=== PATIENT | male | born 1985 | race Caucasian/White ===

== ENCOUNTER 2018-03-07 07:48 | Observation (INO) ==
[2018-03-07 08:02] VITALS: BMI 41.3
[2018-03-07 08:30] LABS: BILIRUBIN,URINE NEGATIVE (NEGATIVE); BLOOD/HEMOGLOBIN,URINE 1+ (NEGATIVE); GLUCOSE, URINE NEGATIVE (NEGATIVE); KETONES,URINE NEGATIVE (NEGATIVE); LEUKOCYTE ESTERASE ,URINE NEGATIVE (NEGATIVE); NITRITES,URINE NEGATIVE (NEGATIVE); PROTEIN,URINE NEGATIVE (NEGATIVE); UROBILINOGEN,URINE NORMAL (NORMAL)
[2018-03-07 08:34] LABS: APPEARANCE,URINE CLEAR (CLEAR); COLOR,URINE YELLOW (YELLOW)
[2018-03-07 08:38] LABS: BACTERIA,URINE NEGATIVE /HPF (NEGATIVE); MUCUS,URINE FEW /HPF (NEGATIVE); RBC,URINE 0-2 /HPF (NONE SEEN); SQUAMOUS EPITHELIAL CELL,UR NEGATIVE /HPF (NEGATIVE)
[2018-03-07] MEDS ORDERED: ZOFRAN INJ 4 MG VIAL IVP ONE (08:42)
[2018-03-07] MEDS ORDERED: MORPHINE SULFATE INJ 4 MG IVP ONE ×2 (08:44→09:39)
[2018-03-07] MEDS ORDERED: ZOFRAN INJ 4 MG VIAL ONE (08:44)
[2018-03-07] MEDS ORDERED: MORPHINE SULFATE INJ 4 MG ONE ×2 (08:45→09:40)
--- NOTE | 2018-03-07 08:48 | DR.ABDMALE ---
HPI Time seen Time Seen by Provider: 03/07/18 08:15 PCP Primary Care Physician: GABRIELLA Complaint Chief Complaint:: PT C/O SUDDEN ONSET OF SEVERE SHARP STABBING PAIN INTO RIGHT LOWER QUADRANT. PAIN IS CONSTANT AND IS WORSENED BY SITTING DOWN. Mode of arrival Mode of Arrival: Ambulatory Timing Onset of Chief Complaint: 03/07/18 PMH PMH Past Medical History: Yes Past Medical History: GERD Past Surgical History: No Family History History of Family Medical Conditions: No Social History Does patient currently use any type of tobacco product: No Have you used tobacco products in the last 12 months: No Type of Tobacco Use: None Does any household member use tobacco: No Alcohol Use: None Do you use any recreational Drugs:: No Lives With: Alone Lives Where: Home infectious screening In the last 2 months have you had wt loss of >10#?: NO Have you had fever, night sweats or hemotysis?: No Have you traveled outside the country in the last 6 months?: No Isolation: Standard PE Vital Signs Vital Signs: Temp Pulse Resp BP Pulse Ox 03/07/18 07:58 98.1 F 95 H 22 181/101 98 ROR Labs Reviewed Result Diagrams: 03/07/18 09:03 03/07/18 09:03 Laboratory: WBC 13.3 X10^3/uL (3.6-10.0) H 03/07/18 09:03 RBC 5.37 X10^6/uL (4.7-6.0) 03/07/18 09:03 Hgb 15.5 g/dL (13.5-18.0) 03/07/18 09:03 Hct 45.9 % (42.0-54.0) 03/07/18 09:03 MCV 85.4 fL (80.0-100.0) 03/07/18 09:03 MCH 28.8 pg (27.0-34.0) 03/07/18 09:03 MCHC 33.8 g/dL (33.0-35.0) 03/07/18 09:03 RDW 13.3 % (11.6-16.5) 03/07/18 09:03 Plt Count 192 X10^3/uL (150.0-450.0) 03/07/18 09:03 MPV 10.3 fL (7.4-11.0) 03/07/18 09:03 Neut % (Auto) 80.6 % (42.0-75.0) H 03/07/18 09:03 Lymph % (Auto) 12.3 % (21.0-51.0) L 03/07/18 09:03 [place] % (Auto) 5.8 % (0.0-13.0) 03/07/18 09:03 Eos % (Auto) 0.9 % (0.9-2.9) 03/07/18 09:03 Baso % (Auto) 0.4 % (0.2-1.0) 03/07/18 09:03 Neut # (Auto) 10.7 x10^3/uL (2.2-4.8) H 03/07/18 09:03 Lymph # (Auto) 1.6 X10^3/uL (1.3-2.9) 03/07/18 09:03 [place] # (Auto) 0.8 x10^3/uL (0.3-0.8) 03/07/18 09:03 Eos # (Auto) 0.1 x10^3/uL (0.0-0.2) 03/07/18 09:03 Baso # (Auto) 0.1 X10^3/uL (0.0-0.1) 03/07/18 09:03 Absolute Nucleated RBC 0.0 /100WBC 03/07/18 09:03 Sodium 138 mmol/L (136-145) 03/07/18 09:03 Corrected Sodium TNP 03/07/18 09:03 Potassium 3.7 mmol/L (3.5-5.1) 03/07/18 09:03 Chloride 101 mmol/L (98-107) 03/07/18 09:03 Carbon Dioxide 26.4 mmol/L (21-32) 03/07/18 09:03 BUN 12 mg/dL (7-18) 03/07/18 09:03 Creatinine 1.13 mg/dL (0.70-1.30) 03/07/18 09:03 Est GFR (MDRD) Af Amer > 60 (>60) 03/07/18 09:03 Est GFR (MDRD) Non-Af > 60 (>60) 03/07/18 09:03 Glucose 108 mg/dL (65-99) H 03/07/18 09:03 Calcium 9.0 mg/dL (8.5-10.1) 03/07/18 09:03 Corrected Calcium TNP 03/07/18 09:03 Total Bilirubin 0.30 mg/dL (0.2-1.0) 03/07/18 09:03 AST 20 Units/L (15-37) 03/07/18 09:03 ALT 48 Units/L (12-78) 03/07/18 09:03 Alkaline Phosphatase 106 Units/L (46-116) 03/07/18 09:03 Total Protein 7.9 g/dL (6.4-8.2) 03/07/18 09:03 Albumin 3.7 g/dL (3.4-5.0) 03/07/18 09:03 Globulin 4.2 g/dL (2.5-4.5) 03/07/18 09:03 Albumin/Globulin Ratio 0.9 Ratio (1.1-2.1) L 03/07/18 09:03 Amylase 33 Units/L (25-115) 03/07/18 09:03 Lipase 97 Units/L (73-393) 03/07/18 09:03 Specimen Type Clean catch urine 03/07/18 08:25 Urine Color Yellow (YELLOW) 03/07/18 08:25 Urine Appearance Clear (CLEAR) 03/07/18 08:25 Urine pH 5.0 (5.0 - 8.0) 03/07/18 08:25 Ur Specific [place] 1.020 (1.000-1.030) 03/07/18 08:25 Urine Protein Negative (NEGATIVE) 03/07/18 08:25 Urine Glucose (UA) Negative (NEGATIVE) 03/07/18 08:25 Urine Ketones Negative (NEGATIVE) 03/07/18 08:25 Urine Occult Blood 1+ (NEGATIVE) 03/07/18 08:25 Urine Nitrite Negative (NEGATIVE) 03/07/18 08:25 Urine Bilirubin Negative (NEGATIVE) 03/07/18 08:25 Urine Urobilinogen Normal (NORMAL) 03/07/18 08:25 Ur Leukocyte Esterase Negative (NEGATIVE) 03/07/18 08:25 Urine RBC 0-2 /HPF (NONE SEEN) 03/07/18 08:25 Urine WBC None seen /HPF (NONE SEEN) 03/07/18 08:25 Ur Squamous Epith Cells Negative /HPF (NEGATIVE) 03/07/18 08:25 Urine Bacteria Negative /HPF (NEGATIVE) 03/07/18 08:25 Urine Mucus Few /HPF (NEGATIVE) 03/07/18 08:25 Ur Culture Indicated? No/not indicated 03/07/18 08:25
[2018-03-07] MEDS ORDERED: NS 500 ML IV 500 ML IV ONE (09:09)
[2018-03-07 09:28] LABS: BASOPHILS # (AUTO) 0.1 X10^3/uL (0.0-0.1); BASOPHILS % (AUTO) 0.4 % (0.2-1.0); EOSINOPHILS # (AUTO) 0.1 x10^3/uL (0.0-0.2); EOSINOPHILS % (AUTO) 0.9 % (0.9-2.9); HEMATOCRIT 45.9 % (42.0-54.0); HEMOGLOBIN 15.5 g/dL (13.5-18.0); LYMPHOCYTES # (AUTO) 1.6 X10^3/uL (1.3-2.9); LYMPHOCYTES % (AUTO) 12.3 % (21.0-51.0); MEAN CORPUSCULAR HEMOGLOBIN 28.8 pg (27.0-34.0); MEAN CORPUSCULAR HGB CONC 33.8 g/dL (33.0-35.0); MEAN CORPUSCULAR VOLUME 85.4 fL (80.0-100.0); MEAN PLATELET VOLUME 10.3 fL (7.4-11.0); MONOCYTES # (AUTO) 0.8 x10^3/uL (0.3-0.8); MONOCYTES % (AUTO) 5.8 % (0.0-13.0); NEUTROPHILS # (AUTO) 10.7 x10^3/uL (2.2-4.8); NEUTROPHILS % (AUTO) 80.6 % (42.0-75.0); PLATELET COUNT 192 X10^3/uL (150.0-450.0); RED BLOOD COUNT 5.37 X10^6/uL (4.7-6.0); RED CELL DISTRIBUTION WIDTH 13.3 % (11.6-16.5); WHITE BLOOD COUNT 13.3 X10^3/uL (3.6-10.0)
[2018-03-07 09:40] LABS: ALANINE AMINOTRANSFERASE 48 Units/L (12-78); ALBUMIN 3.7 g/dL (3.4-5.0); ALKALINE PHOSPHATASE 106 Units/L (46-116); AMYLASE 33 Units/L (25-115); ASPARTATE AMINO TRANSFERASE 20 Units/L (15-37); BLOOD UREA NITROGEN 12 mg/dL (7-18); CARBON DIOXIDE 26.4 mmol/L (21-32); CHLORIDE 101 mmol/L (98-107); CREATININE 1.13 mg/dL (0.70-1.30); LIPASE 97 Units/L (73-393); SODIUM 138 mmol/L (136-145); TOTAL PROTEIN 7.9 g/dL (6.4-8.2); eGFR NON BLACK RACES > 60 (>60)
[2018-03-07] MEDS ORDERED: NS 1000 ML ONE (09:57)
[2018-03-07] MEDS ORDERED: NS IRRIGATION 3000 ML ONE (09:57)
--- NOTE | 2018-03-07 11:58 | CT ---
Exam: CT of the abdomen/pelvis with contrast. History: 32-year-old male with acute onset of right lower quadrant pain. Comparison: None Technique: Axial imaging was performed through the abdomen and pelvis without administering intravenous contrast. Sagittal and coronal reformations were generated. Automated exposure control techniques were used for this exam. Findings: Visualized lung bases are clear. The liver, spleen, pancreas, gallbladder, and adrenal glands are normal. Both kidneys are normal as well with no hydronephrosis, radiopaque calculi, or renal mass on either side. The tip of the appendix is dilated (11 mm), thick walled, with stranding seen in the surrounding fat. A small appendicolith may be present as well. Findings are consistent with acute appendicitis. Remainder of the large and small bowel are unremarkable with no other sign of inflammation. No obstruction is seen. Abdominal aorta and IVC are normal. No intra-abdominal pelvic masses, ascites, or lymphadenopathy. Incidental note is made of small bilateral fat filled inguinal hernias. On the bone windows, no specific abnormality is seen. Impression: Findings consistent with acute appendicitis. Reported By:
[2018-03-07] MEDS ORDERED: DILAUDID INJ IVP ONE (12:17)
[2018-03-07] MEDS ORDERED: DILAUDID INJ ONE ×2 (12:17→15:09)
[2018-03-07] MEDS ORDERED: D5 NS 1000 ML 1,000 ML IV ONE (12:36)
[2018-03-07] MEDS ORDERED: ZOSYN VIAL 3.375 GRAMS IV ONE (12:36)
[2018-03-07] MEDS ORDERED: NS 100 ML IV + SPIKE MINIBAG* 100 ML IV ONE (12:36)
[2018-03-07] MEDS: ZOSYN VIAL 3.375 GRAMS 3.375 G in NS 100 ML IV + SPIKE MINIBAG* 100 ML IV SCH ×3 (12:47→21:17)
[2018-03-07] MEDS ORDERED: D5 1/2 NS 1000 ML 1,000 ML IV SCH (13:00)
[2018-03-07] MEDS ORDERED: PHENERGAN INJ 25 MG IVP PRN (13:33)
[2018-03-07] MEDS ORDERED: DILAUDID INJ IVP PRN (13:33)
[2018-03-07] MEDS ORDERED: REGLAN INJ 10 MG VIAL IVP PRN (13:33)
[2018-03-07] MEDS ORDERED: BENADRYL INJ 50 MG VIAL IVP PRN (13:33)
[2018-03-07] MEDS ORDERED: FENTANYL INJ 250 mcg ONE (13:36)
[2018-03-07] MEDS: ZOFRAN INJ 4 MG VIAL IVP PRN ×2 (13:42→15:35)
[2018-03-07] MEDS ORDERED: LR 1000 ML IV 1,000 ML IV ONE (14:36)
[2018-03-07] MEDS ORDERED: BACITRACIN VIAL ONE (14:46)
[2018-03-07] MEDS ORDERED: BACTROBAN TOPICAL OINT ONE (14:46)
[2018-03-07] MEDS ORDERED: DIPRIVAN VIAL ONE (15:36)
[2018-03-07] MEDS ORDERED: NORCURON INJ 10 MG VIAL ONE (15:36)
[2018-03-07] MEDS ORDERED: SUPRANE IN ONE (15:36)
[2018-03-07] MEDS ORDERED: VERSED ONE (15:36)
[2018-03-07] MEDS ORDERED: QUELICIN (OR ANECTINE) ONE (15:36)
[2018-03-07] MEDS ORDERED: ROBINUL ONE (15:36)
[2018-03-07] MEDS ORDERED: NEOSTIGMINE INJ ONE (15:36)
[2018-03-07] MEDS: ZOFRAN INJ 4 MG VIAL IV PRN ×2 (17:26→22:28)
[2018-03-07] MEDS: DILAUDID INJ IVP PRN ×3 (17:27→22:27)
[2018-03-07] MEDS: D5 1/2 NS 1000 ML 1,000 ML IV SCH (17:28)
[2018-03-07 22:31] LABS: BASOPHILS % (AUTO) 0.3 % (0.2-1.0); EOSINOPHILS % (AUTO) 0.1 % (0.9-2.9); HEMATOCRIT 42.2 % (42.0-54.0); HEMOGLOBIN 14.2 g/dL (13.5-18.0); LYMPHOCYTES # (AUTO) 1.1 X10^3/uL (1.3-2.9); LYMPHOCYTES % (AUTO) 9.5 % (21.0-51.0); MEAN CORPUSCULAR HEMOGLOBIN 28.9 pg (27.0-34.0); MEAN CORPUSCULAR HGB CONC 33.7 g/dL (33.0-35.0); MEAN CORPUSCULAR VOLUME 85.7 fL (80.0-100.0); MEAN PLATELET VOLUME 10.1 fL (7.4-11.0); MONOCYTES # (AUTO) 0.8 x10^3/uL (0.3-0.8); MONOCYTES % (AUTO) 6.7 % (0.0-13.0); NEUTROPHILS # (AUTO) 9.9 x10^3/uL (2.2-4.8); NEUTROPHILS % (AUTO) 83.4 % (42.0-75.0); PLATELET COUNT 182 X10^3/uL (150.0-450.0); RED BLOOD COUNT 4.92 X10^6/uL (4.7-6.0); RED CELL DISTRIBUTION WIDTH 13.2 % (11.6-16.5); WHITE BLOOD COUNT 11.9 X10^3/uL (3.6-10.0)
[2018-03-08] MEDS: DILAUDID INJ IVP PRN ×3 (01:38→07:54)
[2018-03-08] MEDS: D5 1/2 NS 1000 ML 1,000 ML IV SCH ×4 (01:40→16:12)
[2018-03-08] MEDS: ZOFRAN INJ 4 MG VIAL IV PRN ×2 (04:32→08:01)
[2018-03-08] MEDS: ZOSYN VIAL 3.375 GRAMS 3.375 G in NS 100 ML IV + SPIKE MINIBAG* 100 ML IV SCH ×3 (05:44→22:24)
[2018-03-08] MEDS ORDERED: POTASSIUM CHL 60 MEQ/NS 0.45% 500 ML IV PRN (09:59)
[2018-03-08] MEDS ORDERED: K-DUR TAB 20 MEQ PO PRN (09:59)
[2018-03-08] MEDS ORDERED: POTASSIUM CHLORIDE LIQ 20 MEQ UDC PO PRN (09:59)
[2018-03-08] MEDS ORDERED: KLOR-CON PO PRN (09:59)
[2018-03-08] MEDS ORDERED: POTASSIUM CHL 40 MEQ/NS 0.45% 500 ML IV PRN (09:59)
[2018-03-08] MEDS ORDERED: MICRO K EXTEN CAP 10 MEQ PO PRN (09:59)
[2018-03-08] MEDS ORDERED: K-RIDER 10 MEQ/NS 100 ML 10 MEQ/100 ML BAG IV PRN (09:59)
--- NOTE | 2018-03-08 09:59 | DR.PROGNOT ---
Hospital Progress Notes - Progress Note for Day of: Progress Note Date: 03/08/18 - Chief Complaint Chief Complaint: post op angelita appendectomy . doing fairly well , still having pain required strong narcotics . minimal drainage in CHRIS . WBC 11.1. - Past Medical Family Social History Past Med/Fam/Surg Hx: No changes since H&P Allergies: Allergies No Known Drug Allergies Allergy (Verified 03/07/18 08:05) - Review Of Systems ROS: No change since H&P - Vital Signs Vital Signs: Temperature 98.9 F Pulse Rate [Left Brachial] 82 Pulse Rate 94 Respiratory Rate 20 Blood Pressure [Left Arm] 114/55 Blood Pressure 144/75 O2 Sat by Pulse Oximetry 94 - Physical Exam Oriented: Normal Eyes: Normal Ear: Normal Nose: Normal Respiratory: Normal Cardiovascular: Normal GI:Auscultation: Decreased GI:Palpation: Normal GI: Tenderness: RLQ, Mild Skin: Normal Mood Description: Calm Speech Pattern: Clear, Appropriate - Laboratory and Diagnostics Result Diagrams: 03/07/18 22:20 03/07/18 09:03 Labs: Laboratory WBC 11.9 X10^3/uL (3.6-10.0) H 03/07/18 22:20 RBC 4.92 X10^6/uL (4.7-6.0) 03/07/18 22:20 Hgb 14.2 g/dL (13.5-18.0) 03/07/18 22:20 Hct 42.2 % (42.0-54.0) 03/07/18 22:20 MCV 85.7 fL (80.0-100.0) 03/07/18 22:20 MCH 28.9 pg (27.0-34.0) 03/07/18 22:20 MCHC 33.7 g/dL (33.0-35.0) 03/07/18 22:20 RDW 13.2 % (11.6-16.5) 03/07/18 22:20 Plt Count 182 X10^3/uL (150.0-450.0) 03/07/18 22:20 MPV 10.1 fL (7.4-11.0) 03/07/18 22:20 Neut % (Auto) 83.4 % (42.0-75.0) H 03/07/18 22:20 Lymph % (Auto) 9.5 % (21.0-51.0) L 03/07/18 22:20 [place] % (Auto) 6.7 % (0.0-13.0) 03/07/18 22:20 Eos % (Auto) 0.1 % (0.9-2.9) L 03/07/18 22:20 Baso % (Auto) 0.3 % (0.2-1.0) 03/07/18 22:20 Neut # (Auto) 9.9 x10^3/uL (2.2-4.8) H 03/07/18 22:20 Lymph # (Auto) 1.1 X10^3/uL (1.3-2.9) L 03/07/18 22:20 [place] # (Auto) 0.8 x10^3/uL (0.3-0.8) 03/07/18 22:20 Eos # (Auto) 0.0 x10^3/uL (0.0-0.2) 03/07/18 22:20 Baso # (Auto) 0.0 X10^3/uL (0.0-0.1) 03/07/18 22:20 Absolute Nucleated RBC 0.1 /100WBC 03/07/18 22:20 Sodium 138 mmol/L (136-145) 03/07/18 09:03 Corrected Sodium TNP 03/07/18 09:03 Potassium 3.7 mmol/L (3.5-5.1) 03/07/18 09:03 Chloride 101 mmol/L (98-107) 03/07/18 09:03 Carbon Dioxide 26.4 mmol/L (21-32) 03/07/18 09:03 BUN 12 mg/dL (7-18) 03/07/18 09:03 Creatinine 1.13 mg/dL (0.70-1.30) 03/07/18 09:03 Est GFR (MDRD) Af Amer > 60 (>60) 03/07/18 09:03 Est GFR (MDRD) Non-Af > 60 (>60) 03/07/18 09:03 Glucose 108 mg/dL (65-99) H 03/07/18 09:03 Calcium 9.0 mg/dL (8.5-10.1) 03/07/18 09:03 Corrected Calcium TNP 03/07/18 09:03 Magnesium 1.9 mg/dL (1.7-2.9) 03/08/18 08:55 Total Bilirubin 0.30 mg/dL (0.2-1.0) 03/07/18 09:03 AST 20 Units/L (15-37) 03/07/18 09:03 ALT 48 Units/L (12-78) 03/07/18 09:03 Alkaline Phosphatase 106 Units/L (46-116) 03/07/18 09:03 Total Protein 7.9 g/dL (6.4-8.2) 03/07/18 09:03 Albumin 3.7 g/dL (3.4-5.0) 03/07/18 09:03 Globulin 4.2 g/dL (2.5-4.5) 03/07/18 09:03 Albumin/Globulin Ratio 0.9 Ratio (1.1-2.1) L 03/07/18 09:03 Amylase 33 Units/L (25-115) 03/07/18 09:03 Lipase 97 Units/L (73-393) 03/07/18 09:03 Specimen Type Clean catch urine 03/07/18 08:25 Urine Color Yellow (YELLOW) 03/07/18 08:25 Urine Appearance Clear (CLEAR) 03/07/18 08:25 Urine pH 5.0 (5.0 - 8.0) 03/07/18 08:25 Ur Specific [place] 1.020 (1.000-1.030) 03/07/18 08:25 Urine Protein Negative (NEGATIVE) 03/07/18 08:25 Urine Glucose (UA) Negative (NEGATIVE) 03/07/18 08:25 Urine Ketones Negative (NEGATIVE) 03/07/18 08:25 Urine Occult Blood 1+ (NEGATIVE) 03/07/18 08:25 Urine Nitrite Negative (NEGATIVE) 03/07/18 08:25 Urine Bilirubin Negative (NEGATIVE) 03/07/18 08:25 Urine Urobilinogen Normal (NORMAL) 03/07/18 08:25 Ur Leukocyte Esterase Negative (NEGATIVE) 03/07/18 08:25 Urine RBC 0-2 /HPF (NONE SEEN) 03/07/18 08:25 Urine WBC None seen /HPF (NONE SEEN) 01/26/19 08:25 Ur Squamous Epith Cells Negative /HPF (NEGATIVE) 03/07/18 08:25 Urine Bacteria Negative /HPF (NEGATIVE) 03/07/18 08:25 Urine Mucus Few /HPF (NEGATIVE) 03/07/18 08:25 Ur Culture Indicated? No/not indicated 03/07/18 08:25 - Assessment and Plan 1: acute appendecitis , s/p lap appendectomy. same IN ATB and IVF. HTN . - Problem Patient Problems: Patient Problems Acute appendicitis (Acute) K35.80
[2018-03-08] MEDS: PERCOCET TAB 5/325 MG PO PRN ×2 (10:08→19:12)
--- NOTE | 2018-03-08 10:54 | DR.CONSULT ---
Consult - Consultation for Day of: Date: 03/08/18 - Chief Complaint Chief Complaint: 32 WM ER ADMISSION WITH ACUTE APPENDECTOMY PERFORMED IN OR PER DR CHAU ON 03/07. PT CURRENTLY HAS CHRIS DRAIN, CO PAIN WITH REPORTS OF NO URINE OUTPT. PT STATES HE WAS ABOUT TO ATTEMPT TO URINATE THIS AM. WILL INSERT IN AND OUT WARNER PRN FOR URINARY RETENTION. PT WAS HYPERTENSIVE EARLIER ON ADMISSION, WITH NO HX OF HYPERTENSION. BP STABLE THIS AM. WILL CONTINUE TO MONITOR. - Past Medical History Past Medical History: GERD - Social History Does patient currently use any type of tobacco product: No Have you used tobacco products in the last 12 months: No Type of Tobacco Use: None Does any household member use tobacco: No Alcohol Use: None Drug Use: None - Medications Home Medications: No Known Drug Allergies Allergy (Verified 03/07/18 08:05) CONTINUE taking the following medications pantoprazole 40 mg PO DAILY 03/07/18 [History] - Review of Systems Constitutional: Weakness Eyes: No Symptoms Reported ENT: No Symptoms Reported Respiratory: No Symptoms Reported Cardiovascular: No Symptoms Reported Gastrointestinal: Nausea, Abdominal Pain Genitourinary: Retention Musculoskeletal: No Symptoms Reported Skin: Wound (POST APPENDECTOMY SURGICAL INCISIONAL WOUND ) Neurological: No Symptoms Reported - Physical Exam Vital Signs: Temperature 98.9 F Pulse Rate [Left Brachial] 82 Pulse Rate 94 Respiratory Rate 20 Blood Pressure [Left Arm] 114/55 Blood Pressure 144/75 O2 Sat by Pulse Oximetry 94 Oriented: Normal Eyes: Normal Ear: Normal Nose: Normal Throat: Normal Respiratory: Clear Throughout Cardiovascular: Normal : Normal Auscultation: Bowel Sounds: Normal Palpation: Normal Tenderness: RLQ, Suprapubic Skin: Wound (POST OPERATIVE, W/O REDNESS WARMTH OR DRAINAGE). negative: Red, Tender, Hot Musculoskeletal: Normal Psychiatric: Normal Affect: Anxious Speech Pattern: Clear, Appropriate - Plan Plan: PLAN TO CONTINUE POST OPERATIVE PAIN CONTROL, WOUND CARE AND LIMITATIONS PER DR CHAU. WILL CONTINUE TO MONITOR BP, NURSE TO INSERT IN AND OUT CATH FOR CONTINUE URINARY RETENTION. ENCOURAGE ORAL FLUID INTAKE. - Allergies Allergies/Adverse Reactions: Allergies Allergy/AdvReac Type Severity Reaction Status Date / Time No Known Drug Allergies Allergy Verified 03/07/18 08:05
[2018-03-08] MEDS: MAGNESIUM SULFATE 1 GRAM/100 mL PREMIX 1 GM/100 ML BAG IV PRN ×2 (13:30→15:00)
[2018-03-08] MEDS: LOVENOX INJ 40 MG SYR SC SCH (13:38)
[2018-03-09] MEDS: D5 1/2 NS 1000 ML 1,000 ML IV SCH (01:19)
[2018-03-09] MEDS: PERCOCET TAB 5/325 MG PO PRN ×2 (01:35→05:39)
[2018-03-09] MEDS: ZOSYN VIAL 3.375 GRAMS 3.375 G in NS 100 ML IV + SPIKE MINIBAG* 100 ML IV SCH (05:39)
[2018-03-09 06:20] LABS: BASOPHILS % (AUTO) 0.4 % (0.2-1.0); EOSINOPHILS # (AUTO) 0.2 x10^3/uL (0.0-0.2); EOSINOPHILS % (AUTO) 2.3 % (0.9-2.9); HEMATOCRIT 37.3 % (42.0-54.0); HEMOGLOBIN 12.8 g/dL (13.5-18.0); LYMPHOCYTES # (AUTO) 1.9 X10^3/uL (1.3-2.9); LYMPHOCYTES % (AUTO) 26.9 % (21.0-51.0); MEAN CORPUSCULAR HEMOGLOBIN 29.3 pg (27.0-34.0); MEAN CORPUSCULAR HGB CONC 34.2 g/dL (33.0-35.0); MEAN CORPUSCULAR VOLUME 85.7 fL (80.0-100.0); MEAN PLATELET VOLUME 10.2 fL (7.4-11.0); MONOCYTES # (AUTO) 0.7 x10^3/uL (0.3-0.8); MONOCYTES % (AUTO) 10.1 % (0.0-13.0); NEUTROPHILS # (AUTO) 4.2 x10^3/uL (2.2-4.8); NEUTROPHILS % (AUTO) 60.3 % (42.0-75.0); PLATELET COUNT 167 X10^3/uL (150.0-450.0); RED BLOOD COUNT 4.36 X10^6/uL (4.7-6.0); RED CELL DISTRIBUTION WIDTH 13.4 % (11.6-16.5)
[2018-03-09 06:39] LABS: ALANINE AMINOTRANSFERASE 41 Units/L (12-78); ALBUMIN 2.8 g/dL (3.4-5.0); ALKALINE PHOSPHATASE 73 Units/L (46-116); ASPARTATE AMINO TRANSFERASE 24 Units/L (15-37); BLOOD UREA NITROGEN 7 mg/dL (7-18); CALCIUM 8.7 mg/dL (8.5-10.1); CARBON DIOXIDE 30.1 mmol/L (21-32); CHLORIDE 102 mmol/L (98-107); COR CA(FOR HYPOALB) 9.7 mg/dL (8.5-10.1); CREATININE 1.09 mg/dL (0.70-1.30); MAGNESIUM 2.3 mg/dL (1.7-2.9); SODIUM 139 mmol/L (136-145); TOTAL PROTEIN 6.6 g/dL (6.4-8.2); eGFR NON BLACK RACES > 60 (>60)
[2018-03-09 08:19] VITALS: BP 125/74
[2018-03-09] MEDS: LOVENOX INJ 40 MG SYR SC SCH (09:08)
== END 2018-03-09 11:10 | disposition home or self-care (01) ==
LOC: ER 07:56 → SURG1 13:22 → INTOOBSV 15:40 → MED/SURG 15:40
PROVIDERS: ADMIT Surgery; ATTEND Surgery
PROC: APPYLAP (ICD-10-PCS; 2018-03-07 13:45)
DX: R10.31 Right lower quadrant pain; E66.01 Morbid (severe) obesity due to excess calories; K35.890 Other acute appendicitis without perforation or gangrene; K21.9 Gastro-esophageal reflux disease without esophagitis
CPT/HCPCS: 36415; 74177; 80053; 81001; 82150; 83690; 83735; 85025; 94760; 96365; 96367; 96372; 96374; 96375; 99282; 99284; A4216; A4222; J3490; G0378; J0330; J1170; J1650; J2250; J2270; J2405; J2543; J2704; J2710; J3010; J3475; J7030; J7040; J7042; J7050; J7120; S5010